=== PATIENT | female | born 1980 | race Two or more races ===

== ENCOUNTER 2022-01-14 05:45 | Day surgery (SDC) | payer OTHER ==
[~2022-01-14] VITALS: Ht 162.6 cm; Wt 111.1 kg
[~2022-01-14 05:45] MED LIST: HYZAAR 50-12.51 EACH PO
== END 2022-01-14 12:00 | disposition home or self-care (01) ==
LOC: CIR.AMB 05:45
PROVIDERS: ATTEND Orthopaedic Surgery Hand Surgery
DX: D18.09 Hemangioma of other sites (principal); Z20.822 Contact with and (suspected) exposure to COVID-19; Z88.0 Allergy status to penicillin; E66.9 Obesity, unspecified